=== PATIENT | male | born 1945 | race Caucasian/White ===

== ENCOUNTER 2017-12-12 09:26 | Emergency (ER) | payer OTHER ==
[~2017-12-12] VITALS: Ht 175.3 cm; Wt 75.7 kg
[2017-12-12 09:30] VITALS: BP 122/82
[2017-12-12] MEDS ORDERED: DOCUSATE SODIUM LIQ 100 MG/10 ML UDC ONE (10:19)
[2017-12-12] MEDS ORDERED: DOCUSATE SODIUM LIQ 100 MG/10 ML UDC XX ONE (10:30)
== END 2017-12-12 11:03 | disposition home or self-care (01) ==
LOC: ER 09:39
DX: H61.23 Impacted cerumen, bilateral (principal); K59.00 Constipation, unspecified; F17.200 Nicotine dependence, unspecified, uncomplicated
CPT/HCPCS: A4606; Z7610

== ENCOUNTER 2018-01-17 19:36 | Emergency (ER) | payer OTHER ==
[~2018-01-17] VITALS: Ht 175.3 cm; Wt 68.9 kg
[2018-01-17 19:51] VITALS: BP 130/81
[2018-01-17] MEDS ORDERED: diphenhydrAMINE HCL 50 MG CAPSULE ONE (20:10)
[2018-01-17] MEDS ORDERED: methylPREDNISolone SOD SUCC 125 MG/2ML VIAL ONE (20:10)
[2018-01-17] MEDS ORDERED: diphenhydrAMINE HCL 25 MG CAPSULE PO ONE (20:30)
[2018-01-17] MEDS ORDERED: methylPREDNISolone SOD SUCC 125 MG/2ML VIAL IM ONE (20:30)
== END 2018-01-17 20:25 | disposition home or self-care (01) ==
LOC: ER 19:42
DX: R21 Rash and other nonspecific skin eruption (principal); F17.200 Nicotine dependence, unspecified, uncomplicated
CPT/HCPCS: 96372; 99283; A4606; J2930; Q0163; Z7610